=== PATIENT | female | born 1960 | race Caucasian/White ===

== ENCOUNTER → 2023-12-06 13:13 | Outpatient (CLI) | payer SELFPAY ==
--- NOTE | 2023-12-06 13:15 | CT_ITS ---
WS: [id number] CT CALCIUM SCORE REASON FOR VISIT: HX OF HEAVY SMOKING; Coronary artery disease risk assessment COMPARISON: None TECHNIQUE: Noncontrast coronary CT in combination with quantitative analysis performed on a separate workstation were used to determine CACS (Agatston score) TOTAL EXAM DOSE: 44.29 mGy.cm ECG GATING: Prospective SCAN RANGE: Pulmonary artery bifurcation to Inferior aspect of heart COMPLICATIONS: None FINDINGS: Technical Quality/Examination Quality: Good Limitaiton: None OVERALL SCORES Total calcium score: 21 Total volume score: 18 mm3 Percentile: 50-75 % ARTERY SCORES Left main coronary artery: 0 Left anterior descending artery: 0 Left circumflex artery: 0 Right coronary artery: 21 OTHER FINDINGS: Mediastinum: No mediastinal or hilar lymphadenopathy. Thoracic aorta: Normal. Lungs: Normal. Upper Abdomen: Adrenal glands are normal. Tiny esophageal hiatal hernia. MINIMAL: 1-10 MILD: 11-100 MODERATE: 101-400 SEVERE:>400 CT/CT heart w calcium score 87982 IMPRESSION: 1. Total calcium score of 21 corresponds to the 50th- 75th percentile for fem ales between the ages of 60 and 64. 2. Focal atheromatous disease in the mid LAD which does not register on the co [employer] calcium score software. Consider further evaluation with coronary angiog maribel. GRADING OF CORONARY ARTERY DISEASE (BASED ON TOTAL CALCIUM SCORE) NO EVIDENCE OF CAD: 0 calcium score
== END | disposition home or self-care (01) ==
LOC: RAD 13:12
PROVIDERS: Visit Provider Family Medicine
DX: Z87.891 Personal history of nicotine dependence (principal); I25.10 Atherosclerotic heart disease of native coronary artery without angina pectoris
CPT/HCPCS: 75571

== ENCOUNTER → 2025-02-14 10:44 | Outpatient (BNVA) | payer OTHER, SELFPAY | PROVIDERS: Referring Provider Family Medicine; Visit Provider Internal Medicine Cardiovascular Disease | DX: R07.9 Chest pain, unspecified (principal) | CPT/HCPCS: 93005 ==